=== PATIENT | male | born 1970 | race Two or more races ===

== ENCOUNTER 2022-03-28 12:34 | Emergency (ER) | payer MEDICAID ==
[~2022-03-28] VITALS: Ht 177.8 cm; Wt 91.0 kg
[2022-03-28] MEDS ORDERED: KETOROLAC 60MG/2ML VIAL IM ONE (14:00)
[2022-03-28] MEDS ORDERED: TETANUS, DIPHTHERIA, PERTUSSIS VAC/PF 0.5ML (>10YR OLD) IM ONE (14:00)
[2022-03-28] MEDS ORDERED: LIDOCAINE HCL/EPINEPHRINE 1%-EPI 1:100,000 50 ML VIAL INFIL ONE (14:15)
[2022-03-28] MEDS ORDERED: PENICILLIN G POTASSIUM 2.5 MMU in DEXTROSE 5% WATER 50 ML IV STA (16:01)
[2022-03-29] MEDS ORDERED: PENICILLIN G POTASSIUM 2.5 MMU in DEXTROSE 5% WATER 50 ML IV SCH (09:00)
[2022-03-29] MEDS ORDERED: T3 PO (10:36)
[2022-03-29] MEDS ORDERED: AMOX1TAB16 MT (10:36)
[2022-03-29 11:31] VITALS: BP 104/52
== END 2022-03-29 11:35 | disposition home or self-care (01) ==
LOC: ER 12:58
DX: S02.69XA Fracture of mandible of other specified site, initial encounter for closed fracture (principal); X58.XXXA Exposure to other specified factors, initial encounter; Y93.89 Activity, other specified; Y92.89 Other specified places as the place of occurrence of the external cause; Y99.8 Other external cause status
CPT/HCPCS: 12011; 70450; 70486; 90471; 90715; 93005; 96365; 96366; 96372; 99285; J1885; J2540; J7060